=== PATIENT | female | born 1980 | race American Indian/Alaskan Native ===

== ENCOUNTER 2019-04-29 10:47 | Emergency (ER) | payer MEDICAID ==
[2019-04-29] MEDS ORDERED: ASPIRIN 325 MG TAB PO ONE (10:55)
--- NOTE | 2019-04-29 12:08 | XRay Report ---
CHEST 1 VIEW INDICATION: Chest Pain. COMPARISON: None FINDINGS: Support devices: None. Heart: Within normal limits. Lungs/Pleura: No acute air space or interstitial disease. Additional findings: None. IMPRESSION: Normal AP chest. Signer Name: Johny Wilkins Jr, MD Signed: 04/29/2019 12:03 PM Workstation Name: [id number]
[2019-04-29 12:53] LABS: BUN/Creatinine Ratio 24; Blood Urea Nitrogen 12 mg/dL (7-17); Calcium 8.9 mg/dL (8.4-10.2); Hemolysis Index 0
[2019-04-29 14:36] LABS: Basophils # (Auto) 0.1 K/mm3 (0.0-0.1); Basophils % (Auto) 1.5 % (0.0-1.8); Eosinophils # (Auto) 0.1 K/mm3 (0.0-0.4); Eosinophils % (Auto) 1.8 % (0.0-4.3); Lymphocytes # (Auto) 2.5 K/mm3 (1.2-5.4); Lymphocytes % (Auto) 33.5 % (13.4-35.0); Mean Corpuscular HGB Conc 30 % (30-34); Monocytes # (Auto) 0.7 K/mm3 (0.0-0.8); Monocytes % (Auto) 9.1 % (0.0-7.3); Platelet Count 471 K/mm3 (140-440); Red Blood Count 4.46 M/mm3 (3.65-5.03); Red Cell Distribution Width 18.9 % (13.2-15.2)
[2019-04-29 14:37] LABS: Hematocrit 30.1 % (30.3-42.9); Hemoglobin 8.9 gm/dl (10.1-14.3); Mean Corpuscular Volume 68 fl (79-97)
--- NOTE | 2019-04-29 15:09 | Emergency Department Report ---
ED General Adult HPI - General Chief complaint: Chest Pain Stated complaint: CHEST PAIN/FATIGUE/HEADACHE/DIZ Time Seen by Provider: 04/29/19 12:28 Source: patient Mode of arrival: Ambulatory Limitations: No Limitations - History of Present Illness Initial comments: Patient is a 39-year-old [place] female who is presenting with some midsternal chest discomfort. Patient states that this started approximately 4 AM last night. Patient states is aching throbbing pain in the center of the chest has been constant. Patient states it's suddenly worse when lying flat. Patient had the same symptoms approximately 5-6 days ago but attributed to pos sibly something that didn't agree with her. She denies cough congestion fevers chills and nausea vomiting at this time. Patient's states several years ago she was diagnosed with being acutely anemic and needed a blood transfusion and patient did have some chest discomfort at that time that was similar. - Related Data Previous Rx's Medication Instructions Recorded Last Taken Type Famotidine [Pepcid] 40 mg PO QHS #10 tablet 04/29/19 Unknown Rx traMADol [Ultram] 50 mg PO Q6HR PRN #10 tablet 04/29/19 Unknown Rx Allergies Allergy/AdvReac Type Severity Reaction Status Date / Time No Known Allergies Allergy Verified 04/29/19 10:53 ED Review of Systems ROS: Stated complaint: CHEST PAIN/FATIGUE/HEADACHE/DIZ Other details as noted in HPI Comment: All other systems reviewed and negative ED Past Medical Hx - Past Medical History Previous Medical History?: Yes Additional medical history: anemia- blood transfusions x2 - Surgical History Past Surgical History?: Yes Additional Surgical History: c section - Social History Smoking Status: Never Smoker Substance Use Type: Alcohol - Medications Home Medications: Home Medications Medication Instructions Recorded Confirmed Last Taken Type Famotidine [Pepcid] 40 mg PO QHS #10 tablet 04/29/19 Unknown Rx traMADol [Ultram] 50 mg PO Q6HR PRN #10 tablet 04/29/19 Unknown Rx ED Physical Exam - General Limitations: No Limitations General appearance: alert, in no apparent distress - Head Head exam: Present: atraumatic, normocephalic - Eye Eye exam: Present: normal appearance - ENT ENT exam: Present: mucous membranes moist - Neck Neck exam: Present: normal inspection - Respiratory Respiratory exam: Present: normal lung sounds bilaterally. Absent: respiratory distress, wheezes, rales, rhonchi, chest wall tenderness - Cardiovascular Cardiovascular Exam: Present: regular rate, normal rhythm. Absent: normal heart sounds, systolic murmur, diastolic murmur, rubs, gallop - GI/Abdominal GI/Abdominal exam: Present: soft, normal bowel sounds. Absent: distended, tenderness, guarding, rebound, rigid - Extremities Exam Extremities exam: Present: normal inspection - Back Exam Back exam: Present: normal inspection - Neurological Exam Neurological exam: Present: alert, oriented X3 - Psychiatric Psychiatric exam: Present: normal affect, normal mood - Skin Skin exam: Present: warm, dry, intact, normal color. Absent: rash ED Course Vital Signs 04/29/19 10:56 Temperature 98.4 F Pulse Rate 72 Respiratory 18 Rate Blood Pressure 168/91 O2 Sat by Pulse 100 Oximetry ED Medical Decision Making - Lab Data Result diagrams: 04/29/19 12:07 04/29/19 12:07 Lab Results 04/29/19 04/29/19 04/29/19 Range/Units 12:07 12:07 12:07 WBC 7.4 (4.5-11.0) K/mm3 RBC 4.46 (3.65-5.03) M/mm3 Hgb 8.9 L (10.1-14.3) gm/dl Hct 30.1 L (30.3-42.9) % MCV 68 L (79-97) fl MCH 20 L (28-32) pg MCHC 30 (30-34) % RDW 18.9 H (13.2-15.2) % Plt Count 471 H (140-440) K/mm3 Lymph % (Auto) 33.5 (13.4-35.0) % [place] % (Auto) 9.1 H (0.0-7.3) % Eos % (Auto) 1.8 (0.0-4.3) % Baso % (Auto) 1.5 (0.0-1.8) % Lymph # 2.5 (1.2-5.4) K/mm3 [place] # 0.7 (0.0-0.8) K/mm3 Eos # 0.1 (0.0-0.4) K/mm3 Baso # 0.1 (0.0-0.1) K/mm3 Seg Neutrophils % 54.1 (40.0-70.0) % Seg Neutrophils # 4.0 (1.8-7.7) K/mm3 Sodium 140 (137-145) mmol/L Potassium 3.8 (3.6-5.0) mmol/L Chloride 104.3 (98-107) mmol/L Carbon Dioxide 23 (22-30) mmol/L Anion Gap 17 mmol/L BUN 12 (7-17) mg/dL Creatinine 0.5 L (0.7-1.2) mg/dL Estimated GFR > 60 ml/min BUN/Creatinine Ratio 24 % Glucose 101 H (65-100) mg/dL Calcium 8.9 (8.4-10.2) mg/dL Troponin T < 0.010 < 0.010 (0.00-0.029) ng/mL - EKG Data -: EKG Interpreted by Me - EKG Data 04/29/19 15:07 EKG shows sinus rhythm a rate of 72. [place] and intervals are normal. Patient does have some diffuse T-wave flattening. No ST segment elevations or depressions. Time of interpretation is 1108 - Radiology Data Radiology results: report reviewed (CXR WNL) - Medical Decision Making Patient is a 39-year-old [place] female who is presenting with some chest discomfort. Troponins 2 were negative. Patient is mildly anemic but not his threshold it would require acute transfusion. Patient be DC'd home with 5 therapy as well as medication for possible GERD. Patient given follow-up with cardiology as well. Critical care attestation.: If time is entered above; I have spent that time in minutes in the direct care of this critically ill patient, excluding procedure time. ED Disposition Clinical Impression: Atypical chest pain Disposition: DC-01 TO HOME OR SELFCARE Is pt being admited?: No Does the pt Need Aspirin: No Condition: Stable Instructions: Chest Pain (ED) Referrals: SADIQ LIMON MD [Staff Physician] - 3-5 Days Time of Disposition: 15:09
[2019-04-29 15:40] VITALS: BP 134/78
== END 2019-04-29 13:41 | disposition home or self-care (01) ==
LOC: ED 10:47
DX: R07.89 Other chest pain (principal)
CPT/HCPCS: 36415; 71045; 80048; 84484; 85025; 93005

== ENCOUNTER 2019-07-29 16:43 | Emergency (ER) | payer MEDICAID ==
--- NOTE | 2019-07-29 18:59 | Event Note ---
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 Further treatment and workup at subsequent clinical providers discretion. Patient/guardian urged not to elope from the ED as their condition may be serious if not clinically assessed and managed. Initial orders include: XR L-spine
--- NOTE | 2019-07-29 19:46 | XRay Report ---
LUMBAR SPINE 2 VIEWS INDICATION / CLINICAL INFORMATION: low back pain radiates down BLE COMPARISON: None available. FINDINGS: BONES / JOINT(S): No acute fracture or subluxation. No significant arthritis. SOFT TISSUES: No significant abnormality. ADDITIONAL FINDINGS: None. Signer Name: Keshawn Bustamante MD Signed: 07/29/2019 7:41 PM Workstation Name: [id number]
[2019-07-29 20:50] VITALS: BP 145/93
[2019-07-29] MEDS ORDERED: HYDROmorphone 1 MG/1 ML INJ IM ONE (22:36)
[2019-07-29] MEDS ORDERED: dexAMETHasone 20 MG/5 ML VIAL IM ONE (22:36)
[2019-07-29] MEDS ORDERED: ONDANSETRON 4 MG ODT TAB PO ONE (22:36)
[2019-07-29] MEDS ORDERED: KETOROLAC 30 MG/1 ML INJ IM ONE (22:36)
--- NOTE | 2019-07-29 23:55 | Emergency Department Report ---
ED Back Pain/Injury HPI - General Chief Complaint: Back Pain/Injury Stated Complaint: SEVERE BACK PAIN/UNABLE TO STAND Time Seen by Provider: 07/29/19 18:57 Source: patient Limitations: No Limitations - History of Present Illness Initial Comments: Patient is a 39-year-old female with no past medical history who presents to the ED with complaint of acute onset persistent severe nontraumatic low back pain that radiates to the lower extremities bilaterally. Patient states that the patient initially started 2 days ago but that was about 12 hours ago when she bent down to dress up and lost balance and fell down on the floor due to low back pain. The patient states that the pain has been constant since then. Patient denies dysuria, urinary frequency and urgency, urinary or bowel incontinence, saddle paresthesia, fever, chills, hematuria, traumatic injury, change in vision, syncope, head or neck injuries, chest pain or shortness of breath or numbness and tingling or weakness of lower extremities bilaterally. MD Complaint: back pain, other (low back pain that radiates to the lower extremities bilaterally) -: Sudden, days(s) (2) Similar Symptoms Previously: No Place: home Radiation: left leg, right leg Severity: severe Severity scale (0 -10): 9 Quality: sharp, aching Consistency: constant Improves With: none Worsens With: movement, sitting upright, walking Context: while lifting, turning/twisting, fall Associated Symptoms: denies other symptoms, difficulty walking. denies: confusion, weakness, chest pain, numbness, cough, difficulty urinating, diaphoresis, incontinence, fever/chills, constipation, headaches, abdominal pain, loss of appetite, nausea/vomiting, seizure, other Treatments Prior to Arrival: NSAIDS - Related Data Previous Rx's Medication Instructions Recorded Last Taken Type Famotidine [Pepcid] 40 mg PO QHS #10 tablet 04/29/19 Unknown Rx traMADoL [Ultram] 50 mg PO Q6HR PRN #10 tablet 04/29/19 Unknown Rx Naproxen 500 mg PO Q12H PRN #30 tablet 07/30/19 Unknown Rx methOCARBAMOL [Robaxin TAB] 750 mg PO Q8H PRN #30 tablet 07/30/19 Unknown Rx predniSONE [Deltasone] 60 mg PO QDAY #15 tab 07/30/19 Unknown Rx traMADoL [Ultram] 50 mg PO Q6HR PRN #12 tablet 07/30/19 Unknown Rx Allergies Allergy/AdvReac Type Severity Reaction Status Date / Time No Known Allergies Allergy Verified 04/29/19 10:53 ED Review of Systems ROS: Stated complaint: SEVERE BACK PAIN/UNABLE TO STAND Other details as noted in HPI Constitutional: denies: chills, fever Eyes: denies: eye pain, eye discharge, vision change ENT: denies: ear pain, throat pain Respiratory: denies: cough, shortness of breath, wheezing Cardiovascular: denies: chest pain, palpitations Endocrine: no symptoms reported Gastrointestinal: denies: abdominal pain, nausea, vomiting, diarrhea Genitourinary: denies: urgency, dysuria, discharge Musculoskeletal: back pain (lower back pain), arthralgia (bilateral lower legs). denies: joint swelling Skin: denies: rash, lesions Neurological: denies: headache, weakness, paresthesias Psychiatric: denies: anxiety, depression Hematological/Lymphatic: denies: easy bleeding, easy bruising ED Past Medical Hx - Past Medical History Previous Medical History?: Yes Additional medical history: anemia- blood transfusions x2 - Surgical History Past Surgical History?: Yes Additional Surgical History: c section - Social History Smoking Status: Never Smoker Substance Use Type: None - Medications Home Medications: Home Medications Medication Instructions Recorded Confirmed Last Taken Type Famotidine [Pepcid] 40 mg PO QHS #10 tablet 04/29/19 Unknown Rx traMADoL [Ultram] 50 mg PO Q6HR PRN #10 tablet 04/29/19 Unknown Rx Naproxen 500 mg PO Q12H PRN #30 tablet 07/30/19 Unknown Rx methOCARBAMOL [Robaxin TAB] 750 mg PO Q8H PRN #30 tablet 07/30/19 Unknown Rx predniSONE [Deltasone] 60 mg PO QDAY #15 tab 07/30/19 Unknown Rx traMADoL [Ultram] 50 mg PO Q6HR PRN #12 tablet 07/30/19 Unknown Rx ED Physical Exam - General Limitations: No Limitations General appearance: alert, in no apparent distress - Head Head exam: Present: atraumatic, normocephalic, normal inspection - Eye Eye exam: Present: normal appearance, PERRL, EOMI Pupils: Present: normal accommodation - ENT ENT exam: Present: normal exam, normal orophraynx, mucous membranes moist, TM's normal bilaterally, normal external ear exam - Neck Neck exam: Present: normal inspection, full ROM. Absent: tenderness, lymphadenopathy - Respiratory Respiratory exam: Present: normal lung sounds bilaterally. Absent: respiratory distress, wheezes, rales, rhonchi, chest wall tenderness, accessory muscle use, prolonged expiratory - Cardiovascular Cardiovascular Exam: Present: regular rate, normal rhythm, normal heart sounds. Absent: systolic murmur, diastolic murmur, rubs, gallop - GI/Abdominal GI/Abdominal exam: Present: soft, normal bowel sounds. Absent: tenderness, hyperactive bowel sounds - Extremities Exam Extremities exam: Present: normal inspection, full ROM, normal capillary refill. Absent: tenderness - Back Exam Back exam: Present: normal inspection, full ROM, tenderness (palpable severe lumbosacral paraspinal musculoskeletal tenderness), muscle spasm, paraspinal tenderness - Neurological Exam Neurological exam: Present: alert, oriented X3, CN II-XII intact, normal gait, reflexes normal - Psychiatric Psychiatric exam: Present: normal affect, normal mood - Skin Skin exam: Present: warm, dry, intact, normal color. Absent: rash ED Course Vital Signs 07/29/19 07/29/19 07/29/19 17:23 22:54 22:55 Temperature 98.3 F Pulse Rate 94 H Respiratory 18 20 20 Rate Blood Pressure 145/93 O2 Sat by Pulse 97 Oximetry ED Medical Decision Making - Radiology Data Radiology results: report reviewed, image reviewed Findings [facility] [address] [place] [address] XRay Report Signed Patient: LORENZO MENDOZA MR#: [id number] 7 : 1980 Acct:[id number] Age/Sex: 39 / F ADM Date: 07/29/19 Loc: ED Attending Dr: Ordering Physician: KULDIP ESPITIA Date of Service: 07/29/19 Procedure(s): XR spine lumbosacral 2-3V Accession Number(s): [id number] cc: KULDIP ESPITIA Fluoro Time In Minutes: LUMBAR SPINE 2 VIEWS INDICATION / CLINICAL INFORMATION: low back pain radiates down BLE COMPARISON: None available. FINDINGS: BONES / JOINT(S): No acute fracture or subluxation. No significant arthritis. SOFT TISSUES: No significant abnormality. ADDITIONAL FINDINGS: None. Signer Name: Keshawn Bustamante MD Signed: 07/29/2019 7:41 PM Workstation Name: [id number] Transcribed By: ES Dictated By: Keshawn Bustamante MD Electronically Authenticated By: Keshawn Bustamante MD Signed Date/Time: 07/29/191940 - Medical Decision Making This is a 39-year-old female who presented to the ED with acute onset nontraumatic low back pain that radiates to the lower extremities bilaterally for 2 days. In the ED, patient is alert and oriented 3 and distention and d istress. The L-spine x-ray shows no acute fractures or subluxations. Urinalysis is unremarkable. Patient was treated for pain in the ED and on reevaluation, patient's pain is well-controlled with medications. Patient will be sent home on medications and advised to follow-up with her primary care physician in 5-7 days for reevaluation or return to the ED immediately if symptoms get worse. - Differential Diagnosis sciatica; low back pain; degenerative lumbar disc disease; muscle spasm Critical care attestation.: If time is entered above; I have spent that time in minutes in the direct care of this critically ill patient, excluding procedure time. ED Disposition Clinical Impression: Spasm of muscle of lower back Acute bilateral low back pain with sciatica Qualifiers: Sciatica laterality: bilateral sciatica Qualified Code(s): M54.42 - Lumbago with sciatica, left side; M54.41 - Lumbago with sciatica, right side Strain of lumbar paraspinal muscle Qualifiers: Encounter type: initial encounter Qualified Code(s): S39.012A - Strain of muscle, fascia and tendon of lower back, initial encounter Disposition: DC-01 TO HOME OR SELFCARE Is pt being admited?: No Does the pt Need Aspirin: No Condition: Stable Instructions: Muscle Strain (ED), Muscle Spasm (ED), Sciatica (ED), Acute Low Back Pain (ED) Additional Instructions: Take medications food, drink plenty of fluids and follow-up with your primary care physician in 5-7 days for reevaluation. Return to the ED immediately if symptoms get worse. Your symptoms are likely due to sciatica condition in which the nerves in her low back get impinged by the disks and this leads to your lower back pain radiating to the lower extremities. Prescriptions: predniSONE [Deltasone] 60 mg PO QDAY #15 tab Naproxen 500 mg PO Q12H PRN #30 tablet PRN Reason: Pain , Severe (7-10) methOCARBAMOL [Robaxin TAB] 750 mg PO Q8H PRN #30 tablet PRN Reason: Muscle Spasm traMADoL [Ultram] 50 mg PO Q6HR PRN #12 tablet PRN Reason: Pain Referrals: SURESH MALONE MD [Staff Physician] - 3-5 Days Time of Disposition: 00:03 Print Language: DANISH
== END 2019-07-30 00:30 | disposition home or self-care (01) ==
LOC: ED 16:43
DX: S39.012A Strain of muscle, fascia and tendon of lower back, initial encounter (principal); M54.40 Lumbago with sciatica, unspecified side; D64.9 Anemia, unspecified; Z79.899 Other long term (current) drug therapy; W18.11XA Fall from or off toilet without subsequent striking against object, initial encounter; Y93.89 Activity, other specified; Y92.89 Other specified places as the place of occurrence of the external cause; Y99.8 Other external cause status
CPT/HCPCS: 72100; 96372; 99283; J1100; J1170; J1885; Q0162